=== PATIENT | male | born 1995 | race Caucasian/White ===

== ENCOUNTER 2017-03-22 20:49 | Emergency (ER) | payer OTHER ==
[2017-03-23] MEDS ORDERED: Lidocaine 2% JELLY* 10 ML JELLY TOPICAL ONE (01:19)
[2017-03-23] MEDS ORDERED: Ibuprofen TAB* 400 MG PO ONE (01:26)
--- NOTE | 2017-03-23 01:26 | ED ---
Skin Complaint - HPI Summary HPI Summary: Patient presents with skin irritation on the underside of the shaft of his penis after applying Liao to his scrotum four hours ago. His penis apparently rested against the Liao as it worked and he suffered a contact burn. He rinsed the area thoroughly with cold water and soap and applied hydrocortisone without relief. He denies other known cause. - History of Current Complaint Chief Complaint: EDRashSkinAbscess Time Seen by Provider: 03/23/17 00:37 Stated Complaint: CHEMICAL BURN ON PENIS Hx Obtained From: Patient Onset/Duration: Started Hours Ago, Traumatic Timing: Constant Onset Severity: Mild Current Severity: Severe Pain Intensity: 6 Skin Location: Other: - penis Character: Redness, Painful Aggravating Symptom(s): Touch Alleviating Symptom(s): Nothing Associated Signs & Symptoms: Tenderness - Allergy/Home Medications Allergies/Adverse Reactions: Allergies Allergy/AdvReac Type Severity Reaction Status Date / Time Shellfish Allergy Allergy Unknown Verified 03/23/17 00:50 Reaction Details PMH/Surg Hx/FS Hx/Imm Hx Previously Healthy: Yes Infectious Disease History: No Infectious Disease History: Denies: Traveled Outside the [place] in Last 30 Days - Family History Known Family History: Positive: None - Social History Occupation: Student Lives: Alone Alcohol Use: None Substance Use Type: Reports: None Smoking Status (MU): Never Smoked Tobacco Review of Systems Positive: Rash - underside of the shaft of the penis All Other Systems Reviewed And Are Negative: Yes Physical Exam Triage Information Reviewed: Yes Vital Signs On Initial Exam: Initial Vitals Temp Pulse Resp BP Pulse Ox 98.8 F 82 16 121/65 100 03/22/17 20:57 03/22/17 20:57 03/22/17 20:57 03/22/17 20:57 03/22/17 20:57 Vital Signs Reviewed: Yes Appearance: Positive: Well-Appearing, Well-Nourished, Pain Distress Skin: Positive: Warm, Skin Color Reflects Adequate Perfusion, Dry, Tender - mild excoriation to underside of the shaft of the penis, Soft Head/Face: Positive: Normal Head/Face Inspection Eyes: Positive: EOMI, SINCERE, Conjunctiva Clear ENT: Positive: Hearing grossly normal Respiratory/Lung Sounds: Positive: Breath Sounds Present Cardiovascular: Positive: RRR Male Genital Exam: Positive: normal genitalia - appearance, erythema - mild excoriation to underside of the shaft of the penis Musculoskeletal: Negative: Edema Left, Edema Right Neurological: Positive: Sensory/Motor Intact, Alert, Oriented to Person Place, Time, NV Bundle Intact Distally Psychiatric: Positive: Affect/Mood Appropriate AVPU Assessment: Alert Diagnostics - Vital Signs Vital Signs Temp Pulse Resp BP Pulse Ox 03/23/17 00:49 97.9 F 78 16 108/65 98 03/22/17 22:00 99.2 F 76 14 109/58 100 03/22/17 20:57 98.8 F 82 16 121/65 100 - Laboratory Lab Statement: Any lab studies that have been ordered have been reviewed, and results considered in the medical decision making process. Course/Dx - Differential Diagnoses - Skin Complaint Differential Diagnoses: Abscess, Allergic Reaction, Contact Dermatitis, Drug Rash, Local Allergic Reaction, MRSA, Urticaria - Diagnoses Provider Diagnoses: Contact dermatitis Discharge - Discharge Plan Condition: Stable Disposition: HOME Patient Education Materials: Superficial Burn (ED) [facility] - Additional Instructions: Please take ibuprofen 600mg three times daily with meals for the next 3-5 days to decrease pain and swelling. Apply lidocaine gel to affected area to numb and then apply triple antibiotic and non-cling gauze as needed. Follow-up with [facility] if symptoms do not improve in the next 2-3 days. Return to the emergency department if symptoms worsen.
[2017-03-23 01:56] VITALS: BP 119/80
== END 2017-03-23 01:57 | disposition home or self-care (01) ==
LOC: ED 20:49
DX: L25.9 Unspecified contact dermatitis, unspecified cause (principal); R21 Rash and other nonspecific skin eruption
CPT/HCPCS: 99282; A9270-GY